=== PATIENT | female | born 1970 | race Caucasian/White ===

== ENCOUNTER 2016-12-14 14:25 | Emergency (ER) | payer OTHER ==
[~2016-12-14] VITALS: Ht 162.6 cm; Wt 65.8 kg
[~2016-12-14 14:25] MED LIST: HYDR-9 PO; METF500T2 PO
[2016-12-14 14:33] VITALS: BP 133/79
--- NOTE | 2016-12-14 15:08 | NUR ---
Patient ambulated to bed 6. RN evaluating at bedside.
--- NOTE | 2016-12-14 15:10 | NUR ---
56/F BIB SELF C/O HEADACHE TO RIGHT SIDE X 1 DAY. PT STATES BURNING PAIN REDIATING TO RIGHT UPPER SHOULDER & FEELS NAUSEA BUT DENIES /V/D; SKIN IS PINK/WARM/DRY; AAOX4 WITH EVEN AND STEADY GAIT; LUNGS CLEAR BL; HR EVEN AND REGULAR; PT DENIES ANY FEVER, CP, SOB, OR COUGH AT THIS TIME; PATIENT STATES PAIN OF 7/10 AT THIS TIME; VSS; PATIENT POSITIONED FOR COMFORT; HOB ELEVATED; BEDRAILS UP X2; BED DOWN. ER MD MADE AWARE OF PT STATUS.
[2016-12-14] MEDS ORDERED: KETOROLAC 60 MG/2 ML VIAL IM ONE (15:35)
--- NOTE | 2016-12-14 16:18 | NUR ---
Patient appears to be resting comfortably in bed. Vital Signs within normal limits. Respirations even and unlabored.
[2016-12-14 16:43] VITALS: BP 128/78
--- NOTE | 2016-12-14 16:44 | NUR ---
Patient discharged with v/s stable. Written and verbal after care instructions given and explained. Patient alert, oriented and verbalized understanding of instructions. Ambulatory with steady gait. All questions addressed prior to discharge. ID band removed. Patient advised to follow up with PMD. Rx of NORCO, MOTRIN, VALIUM given. Patient educated on indication of medication including possible reaction and side effects. Opportunity to ask questions provided and answered.
== END 2016-12-14 16:44 | disposition home or self-care (01) ==
LOC: MED 14:25
DX: M25.511 Pain in right shoulder (principal); R51 Headache; E11.9 Type 2 diabetes mellitus without complications; I10 Essential (primary) hypertension; Z88.8 Allergy status to other drugs, medicaments and biological substances
CPT/HCPCS: 81002; 81025; 96372; 99283; J1885

== ENCOUNTER 2021-04-22 10:16 | Emergency (ER) | payer OTHER ==
[~2021-04-22] VITALS: Ht 160 cm; Wt 60.8 kg
[~2021-04-22 10:16] MED LIST changes: +HYDR-39 PO; -HYDR-9 PO
[2021-04-22 10:19] VITALS: BP 153/92
--- NOTE | 2021-04-22 10:25 | NUR ---
Patient ambulated to bed 07 with steady/even gait
--- NOTE | 2021-04-22 10:27 | NUR ---
Pt to restroom for urine sample
--- NOTE | 2021-04-22 10:33 | NUR ---
RN AT PT BEDSIDE FOR FURTHER EVALUATION.
--- NOTE | 2021-04-22 10:45 | NUR ---
51 y/o F BIB self from home c/o RUQ pain since 5pm yesterday. Patient A&Ox4, ambulatory, reports RUQ pain after eating a meal that lasted until bedtime at [id number]. Patient states upon waking up this morning, the pain came back. Patient reports RUQ 7/10, burning/intermittent, radiating to epigastric region. Patient states she feels bloating/gas and noticed "I feel like I need to burp more lately." Abd soft/round/tender. Patient denies any medications prior to arrival. Bowel sounds normoactive x 4 quadrants. Last BM: yesterday. Urine sample collected. Bed locked in lowest position, side rails x 1. PMH: HTN, DM Meds: Levofloxacin (completed 7 day tx yesterday), lisinopril with hydrochlorothiazide, metformin A: Naproxen
--- NOTE | 2021-04-22 10:50 | NUR ---
Dr. Blackwell is evaluating patient at bedside
--- NOTE | 2021-04-22 11:05 | NUR ---
Blood sample collected, handed to CPT Tee in lab
[2021-04-22 11:19] LABS: BASOPHILS # (AUTO) 0.1 K/uL (0.00-0.22); BASOPHILS % (AUTO) 0.9 % (0.0-2.0); EOSINOPHILS # (AUTO) 0.1 K/uL (0-0.4); EOSINOPHILS % (AUTO) 1.7 % (0.0-4.0); HEMATOCRIT 37.8 % (36-48); HEMOGLOBIN 12.8 g/dL (12.0-16.0); LYMPHOCYTES # (AUTO) 2.1 K/uL (2.5-16.5); LYMPHOCYTES % (AUTO) 32.4 % (20.5-51.1); MEAN CORPUSCULAR HEMOGLOBIN 31 pg (27-31); MEAN CORPUSCULAR HGB CONC 34 g/dL (33-37); MEAN CORPUSCULAR VOLUME 92.3 fL (80-94); MONOCYTES # (AUTO) 0.6 K/uL (0.8-1.0); NEUTROPHILS # (AUTO) 3.6 K/uL (1.8-7.7); PLATELET COUNT (AUTO) 220 K/uL (140-450); RED CELL DISTRIBUTION WIDTH 13.5 % (11.6-13.7); WHITE BLOOD COUNT (AUTO) 6.5 K/uL (4.8-10.8)
--- NOTE | 2021-04-22 11:26 | NUR ---
US TECH AT PT BEDSIDE.
[2021-04-22 11:40] LABS: ALBUMIN 3.9 g/dL (3.4-5.0); ANION GAP 12.4 (8-16); CARBON DIOXIDE 28.3 mmol/L (21-32); CREATININE 0.6 mg/dL (0.6-1.3); POTASSIUM 3.7 mmol/L (3.5-5.1); TOTAL BILIRUBIN 0.4 mg/dL (0.0-1.0)
--- NOTE | 2021-04-22 12:30 | NUR ---
Patient resting in position of comfort in semi-fowlers position. cafeteria monitor in place; VSS respirations even/unlabored. Bed locked in lowest position, side rails x 1, call light in reach.
--- NOTE | 2021-04-22 13:20 | NUR ---
Patient with both eyes open in no distress. VSS; RR even/unlabored. All pt needs met.
[2021-04-22] MEDS ORDERED: MIRABULK PO (14:52)
[2021-04-22 14:57] VITALS: BP 136/82
== END 2021-04-22 15:01 | disposition home or self-care (01) ==
LOC: MED 10:16
DX: R10.11 Right upper quadrant pain (principal); I10 Essential (primary) hypertension; E11.9 Type 2 diabetes mellitus without complications
CPT/HCPCS: 36415; 74176; 76705; 80053; 81002; 85025; 99285; Q0092

== ENCOUNTER 2021-05-14 01:34 | Emergency (ER) | payer OTHER ==
[~2021-05-14] VITALS: Ht 160 cm; Wt 62.1 kg
[~2021-05-14 01:34] MED LIST changes: +MIRABULK PO
[2021-05-14 01:38] VITALS: BP 161/99
--- NOTE | 2021-05-14 01:38 | NUR ---
TO BED AMBULATORY
--- NOTE | 2021-05-14 02:13 | NUR ---
DR BARRAGAN AT BEDSIDE
--- NOTE | 2021-05-14 02:55 | NUR ---
EKG DONE, PCXR WAS DONE
[2021-05-14 03:11] LABS: BASOPHILS # (AUTO) 0.1 K/uL (0.00-0.22); BASOPHILS % (AUTO) 0.8 % (0.0-2.0); EOSINOPHILS # (AUTO) 0.1 K/uL (0-0.4); EOSINOPHILS % (AUTO) 1.3 % (0.0-4.0); HEMATOCRIT 38.6 % (36-48); HEMOGLOBIN 13.1 g/dL (12.0-16.0); LYMPHOCYTES # (AUTO) 2.1 K/uL (2.5-16.5); MEAN CORPUSCULAR HEMOGLOBIN 31 pg (27-31); MEAN CORPUSCULAR HGB CONC 34 g/dL (33-37); MEAN CORPUSCULAR VOLUME 92.2 fL (80-94); MONOCYTES # (AUTO) 0.6 K/uL (0.8-1.0); MONOCYTES % (AUTO) 7.7 % (1.7-9.3); NEUTROPHILS # (AUTO) 4.9 K/uL (1.8-7.7); NEUTROPHILS % (AUTO) 63.2 % (42.2-75.2); PLATELET COUNT (AUTO) 257 K/uL (140-450); RED BLOOD CELL COUNT(AUTO) 4.19 MIL/uL (4.20-5.40); RED CELL DISTRIBUTION WIDTH 13.5 % (11.6-13.7); WHITE BLOOD COUNT (AUTO) 7.7 K/uL (4.8-10.8)
[2021-05-14 03:26] LABS: ANION GAP 10.6 (8-16); CARBON DIOXIDE 32.9 mmol/L (21-32); CREATININE 0.7 mg/dL (0.6-1.3); POTASSIUM 3.5 mmol/L (3.5-5.1); TOTAL BILIRUBIN 0.2 mg/dL (0.0-1.0)
[2021-05-14 03:50] VITALS: BP 147/78
--- NOTE | 2021-05-14 03:50 | NUR ---
Patient discharged with v/s stable. Written and verbal after care instructions given and explained. Patient verbalized understanding. Ambulatory with steady gait. All questions addressed prior to discharge. Advised to follow up with PMD.
== END 2021-05-14 03:50 | disposition home or self-care (01) ==
LOC: MED 01:34
DX: I10 Essential (primary) hypertension (principal); E11.9 Type 2 diabetes mellitus without complications; Z79.84 Long term (current) use of oral hypoglycemic drugs; Z79.899 Other long term (current) drug therapy; Z88.8 Allergy status to other drugs, medicaments and biological substances
CPT/HCPCS: 36415; 71045; 80053; 84484; 85025; 93005; 99285; Q0092

== ENCOUNTER 2021-07-05 11:49 | Emergency (ER) | payer OTHER ==
[~2021-07-05] VITALS: Ht 162.6 cm; Wt 59.4 kg
[~2021-07-05 11:49] MED LIST changes: +HYDR-2853 PO; -HYDR-39 PO
[2021-07-05 12:15] VITALS: BP 150/76
[2021-07-05] MEDS: ACETAMINOPHEN 650 MG/20.3 ML UDC PO ONE (12:52)
[2021-07-05] MEDS ORDERED: IBUP-2213 PO (13:33)
--- NOTE | 2021-07-05 13:59 | NUR ---
pt right foot 4th and 5th digets willem taped and pt palced in ortho shoe. pa notified
--- NOTE | 2021-07-05 14:40 | NUR ---
PT LEFT WITHOUT DC PAPERWORK. PRESCRIPTION OF MOTRIN WAS SENT TO PHARMACY .
== END 2021-07-05 14:42 | disposition home or self-care (01) ==
LOC: MED 11:49
DX: S92.511A Displaced fracture of proximal phalanx of right lesser toe(s), initial encounter for closed fracture (principal); I10 Essential (primary) hypertension; E11.9 Type 2 diabetes mellitus without complications; Z98.890 Other specified postprocedural states; Z90.710 Acquired absence of both cervix and uterus; Z79.899 Other long term (current) drug therapy; Z79.1 Long term (current) use of non-steroidal anti-inflammatories (NSAID); Z88.6 Allergy status to analgesic agent; Z91.013 Allergy to seafood; W22.8XXA Striking against or struck by other objects, initial encounter; Y93.01 Activity, walking, marching and hiking; Y92.89 Other specified places as the place of occurrence of the external cause; Y99.8 Other external cause status
CPT/HCPCS: 73630; 73660; 99284

== ENCOUNTER 2022-03-28 21:42 | Emergency (ER) | payer OTHER ==
[~2022-03-28] VITALS: Ht 160 cm; Wt 61.7 kg
[~2022-03-28 21:42] MED LIST changes: +IBUP-2213 PO; +METF-1139 PO; -METF500T2 PO
[2022-03-28 22:08] VITALS: BP 152/86
--- NOTE | 2022-03-28 22:12 | NUR ---
TO LOBBY A/W BED AMBULATORY
--- NOTE | 2022-03-28 22:40 | NUR ---
52YR OLD FEMALE BIB SELF C/O CP DIZZY PALPATIONS. STARTED THIS AM. PAIN 7/10 SHARP BURNING . PT IS A&OX4 RESP EVEN AND UNLABORED. 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 HOB ELEVATED. DENIES SOB. STATES PAIN RADIATES FROM UNDER LEFT BREAST TO MID BACK. NAPROXEN HTN DM
--- NOTE | 2022-03-28 22:44 | NUR ---
PT AMBULATED TO BED #7
--- NOTE | 2022-03-28 22:45 | NUR ---
Dr. Chen examining patient.
[2022-03-28 23:06] LABS: BASOPHILS # (AUTO) 0.1 K/uL (0.00-0.22); BASOPHILS % (AUTO) 0.9 % (0.0-2.0); EOSINOPHILS # (AUTO) 0.1 K/uL (0-0.4); EOSINOPHILS % (AUTO) 0.8 % (0.0-4.0); HEMATOCRIT 40.2 % (36-48); LYMPHOCYTES # (AUTO) 3.1 K/uL (2.5-16.5); MEAN CORPUSCULAR HEMOGLOBIN 31 pg (27-31); MEAN CORPUSCULAR HGB CONC 35 g/dL (33-37); MEAN CORPUSCULAR VOLUME 89.8 fL (80-94); MONOCYTES # (AUTO) 0.9 K/uL (0.8-1.0); MONOCYTES % (AUTO) 9.7 % (1.7-9.3); NEUTROPHILS # (AUTO) 5.6 K/uL (1.8-7.7); NEUTROPHILS % (AUTO) 56.6 % (42.2-75.2); PLATELET COUNT (AUTO) 243 K/uL (140-450); RED BLOOD CELL COUNT(AUTO) 4.48 MIL/uL (4.20-5.40); RED CELL DISTRIBUTION WIDTH 12.9 % (11.6-13.7); WHITE BLOOD COUNT (AUTO) 9.8 K/uL (4.8-10.8)
--- NOTE | 2022-03-28 23:13 | NUR ---
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
[2022-03-28] MEDS: ASPIRIN 325 MG TAB PO ONE (23:17)
[2022-03-28] MEDS: NITROGLYCERIN 0.4 MG TAB SL ONE (23:18)
[2022-03-28 23:21] LABS: ALBUMIN 4.2 g/dL (3.4-5.0); ANION GAP 13.8 (8-16); CARBON DIOXIDE 29.5 mmol/L (21-32); CREATININE 0.8 mg/dL (0.6-1.3); POTASSIUM 3.3 mmol/L (3.5-5.1); TOTAL BILIRUBIN 0.3 mg/dL (0.0-1.0)
--- NOTE | 2022-03-28 23:21 | NUR ---
X-Ray at bedside.
[2022-03-29 00:03] LABS: APPEARANCE,URINE CLEAR (CLEAR); BILIRUBIN,URINE NEGATIVE (NEGATIVE); BLOOD, URINE NEGATIVE (NEGATIVE); COLOR,URINE YELLOW (YELLOW); LEUKOCYTE ESTERASE ,URINE 1+ (NEGATIVE); NITRITE, URINE NEGATIVE (NEGATIVE); UGLUCOSE NEGATIVE (NEGATIVE)
[2022-03-29 00:16] LABS: RBC,URINE 0-5 /HPF (0-5)
[2022-03-29 00:17] LABS: YEAST,URINE None Seen /HPF (None Seen)
[2022-03-29] MEDS ORDERED: CEPH-588 PO (01:07)
[2022-03-29] MEDS ORDERED: cefTRIAXone 1,000 MG VIAL ONE (01:34)
[2022-03-29] MEDS ORDERED: LIDOCAINE MPF 1% 5 ML ONE (01:34)
[2022-03-29] MEDS: POTASSIUM CHLORIDE 10 MEQ TABER PO ONE (01:36)
[2022-03-29] MEDS: cefTRIAXone 1,000 MG in LIDOCAINE MPF 1% 2.1 ML IM ONE (01:43)
[2022-03-29 02:00] VITALS: BP 106/65
--- NOTE | 2022-03-29 02:17 | NUR ---
The patient's care was reviewed and supervised by Sarina Rockwell RN.
== END 2022-03-29 02:00 | disposition home or self-care (01) ==
LOC: MED 21:42
DX: R07.89 Other chest pain (principal); R30.0 Dysuria; E11.9 Type 2 diabetes mellitus without complications; I10 Essential (primary) hypertension; Z79.84 Long term (current) use of oral hypoglycemic drugs; Z79.899 Other long term (current) drug therapy; Z88.8 Allergy status to other drugs, medicaments and biological substances
CPT/HCPCS: 36415; 71045; 80053; 81001; 81025; 84484; 85025; 87086; 93005; 96372; 99285; J0696; J2001

== ENCOUNTER 2023-04-02 15:27 | Emergency (ER) | payer OTHER ==
[~2023-04-02] VITALS: Ht 160 cm; Wt 63.5 kg
[~2023-04-02 15:27] MED LIST changes: +CEPH-588 PO
[2023-04-02 16:05] VITALS: BP 143/74; PULSE 87; RESP 18; TEMP 98; O2SAT 99
[2023-04-02] MEDS ORDERED: HYD1C TP (16:19)
== END 2023-04-02 16:30 | disposition home or self-care (01) ==
LOC: MED 15:27
DX: L30.9 Dermatitis, unspecified (principal); E11.9 Type 2 diabetes mellitus without complications; I10 Essential (primary) hypertension; Z79.4 Long term (current) use of insulin; Z79.899 Other long term (current) drug therapy
CPT/HCPCS: 99282

== ENCOUNTER 2023-05-15 13:50 | Emergency (ER) | payer OTHER ==
[~2023-05-15 13:50] MED LIST changes: +HYD1C TP
== END 2023-05-15 15:01 | disposition left against medical advice (07) ==
LOC: MED 13:50
DX: R07.9 Chest pain, unspecified (principal); Z53.21 Procedure and treatment not carried out due to patient leaving prior to being seen by health care provider

== ENCOUNTER 2023-07-21 14:05 | Emergency (ER) | payer OTHER ==
[~2023-07-21] VITALS: Ht 160 cm; Wt 63.5 kg
[2023-07-21 14:29] VITALS: BP_SYST 145; PULSE 76; RESP 14; TEMP 96.9; O2SAT 99
[2023-07-21 16:01] LABS: BASOPHILS # (AUTO) 0.1 K/uL (0.00-0.22); BASOPHILS % (AUTO) 1.2 % (0.0-2.0); EOSINOPHILS # (AUTO) 0.1 K/uL (0-0.4); EOSINOPHILS % (AUTO) 1.1 % (0.0-4.0); HEMATOCRIT 40.5 % (36-48); LYMPHOCYTES # (AUTO) 2.6 K/uL (2.5-16.5); LYMPHOCYTES % (AUTO) 28.3 % (20.5-51.1); MEAN CORPUSCULAR HEMOGLOBIN 31 pg (27-31); MEAN CORPUSCULAR HGB CONC 35 g/dL (33-37); MEAN CORPUSCULAR VOLUME 90.1 fL (80-94); MONOCYTES # (AUTO) 0.7 K/uL (0.8-1.0); NEUTROPHILS # (AUTO) 5.8 K/uL (1.8-7.7); NEUTROPHILS % (AUTO) 62.4 % (42.2-75.2); PLATELET COUNT (AUTO) 289 K/uL (140-450); RED BLOOD CELL COUNT(AUTO) 4.49 MIL/uL (4.20-5.40); RED CELL DISTRIBUTION WIDTH 12.9 % (11.6-13.7); WHITE BLOOD COUNT (AUTO) 9.3 K/uL (4.8-10.8)
[2023-07-21 16:13] LABS: APPEARANCE,URINE CLEAR (CLEAR); BILIRUBIN,URINE NEGATIVE (NEGATIVE); BLOOD, URINE NEGATIVE (NEGATIVE); COLOR,URINE YELLOW (YELLOW); LEUKOCYTE ESTERASE ,URINE NEGATIVE (NEGATIVE); NITRITE, URINE NEGATIVE (NEGATIVE); PH,URINE 6.5 (5.0-9.0); PROTEIN,URINE NEGATIVE (NEGATIVE); UGLUCOSE NEGATIVE (NEGATIVE); UROBILINOGEN,URINE 0.2 EU/dL (0.2 - 1)
[2023-07-21 16:41] LABS: ALBUMIN 3.9 g/dL (3.4-5.0); ANION GAP 13.3 (8-16); CALCIUM 9.7 mg/dL (8.5-10.1); CARBON DIOXIDE 30.3 mmol/L (21-32); CREATININE 0.7 mg/dL (0.6-1.3); POTASSIUM 3.6 mmol/L (3.5-5.1); TOTAL BILIRUBIN 0.4 mg/dL (0.0-1.0); TOTAL PROTEIN, SERUM 8.1 g/dL (6.4-8.2)
[2023-07-21 16:43] LABS: BACTERIA,URINE 1+ /HPF (None Seen); RBC,URINE NONE SEEN /HPF (0-5); SQUAMOUS EPITHELIAL CELL,UR 0-3 (FEW) /LPF (0-3 (FEW)); WBC,URINE 0-5 /HPF (0-5)
== END 2023-07-21 17:01 | disposition home or self-care (01) ==
LOC: MED 14:05
DX: R10.11 Right upper quadrant pain (principal); R10.30 Lower abdominal pain, unspecified; R30.0 Dysuria; E11.9 Type 2 diabetes mellitus without complications; I10 Essential (primary) hypertension; Z79.4 Long term (current) use of insulin; Z88.5 Allergy status to narcotic agent; Z79.899 Other long term (current) drug therapy
CPT/HCPCS: 36415; 74018; 80053; 81001; 83690; 85025; 99284